=== PATIENT | male | born 1965 | race Caucasian/White ===

== ENCOUNTER 2022-06-28 17:16 | Emergency (ER) | payer MEDICAID ==
[~2022-06-28] VITALS: Ht 172.7 cm; Wt 86.4 kg
[2022-06-28] MEDS ORDERED: ONDANSETRON HCL/PF 4 MG/2 ML VIAL ONE (18:20)
[2022-06-28] MEDS ORDERED: MORPHINE SULFATE INJ 4 MG/ML DISP.SYRIN ONE ×2 (18:21→19:52)
--- NOTE | 2022-06-28 18:27 | NUR ---
TAKEN TO CT VIA [facility]ABAS
[2022-06-28] MEDS ORDERED: MORPHINE SULFATE INJ 2 MG/ML DISP.SYRIN IV ONE ×2 (18:30→20:00)
[2022-06-28] MEDS ORDERED: ONDANSETRON HCL/PF - ER 4 MG/2 ML VIAL IV ONE (18:30)
[2022-06-28] MEDS ORDERED: IBUPROFEN 600 MG TABLET PO ONE (21:30)
[2022-06-28] MEDS ORDERED: HYDROCODONE/APAP 5/325MG TABLET PO ONE (21:30)
[2022-06-28] MEDS ORDERED: IBUP-1955 PO (21:52)
[2022-06-28] MEDS ORDERED: HYDR-4303 PO (21:52)
--- NOTE | 2022-06-28 22:10 | NUR ---
EMT AT APPLIED SLING TO L SHOULDER
--- NOTE | 2022-06-28 22:11 | NUR ---
Patient discharged to home in stable condition. Written and verbal after care instructions given. Patient verbalizes understanding of instruction. PT ambulatory with a steady gait IV removed. Catheter intact and site benign. Pressure and 4x4 applied to site. No bleeding noted.
[2022-06-28 22:12] VITALS: BP 135/95
== END 2022-06-28 22:14 | disposition home or self-care (01) ==
LOC: ER 17:18
DX: S16.1XXA Strain of muscle, fascia and tendon at neck level, initial encounter (principal); S30.0XXA Contusion of lower back and pelvis, initial encounter; S49.92XA Unspecified injury of left shoulder and upper arm, initial encounter; M25.551 Pain in right hip; Z88.5 Allergy status to narcotic agent; W01.0XXA Fall on same level from slipping, tripping and stumbling without subsequent striking against object, initial encounter; Y93.01 Activity, walking, marching and hiking; Y92.89 Other specified places as the place of occurrence of the external cause; Y99.8 Other external cause status
CPT/HCPCS: 99284; 72125; 96374; 96375; 96376; 73502; 73030; 70450; 72131; 72128; J2270 ×2; J2405 ×2